=== PATIENT | female | born 1935 | race Hispanic/Latino ===

== ENCOUNTER → 2018-02-05 | Outpatient (CLI) | payer OTHER | END | disposition home or self-care (01) | LOC: RAH 07:43 | PROVIDERS: ATTEND Family Medicine | DX: K80.20 Calculus of gallbladder without cholecystitis without obstruction (principal); N28.1 Cyst of kidney, acquired | CPT/HCPCS: 76700 ==

== ENCOUNTER 2018-02-25 07:10 | Day surgery (SDC) | payer OTHER ==
[2018-02-23 08:27] VITALS: BP 177/92
[2018-02-23 08:35] LABS: BASOPHILS % (AUTO) 0.4 % (0.0-5.0); EOSINOPHILS % (AUTO) 1.6 % (0.0-8.0); HEMATOCRIT 34.7 % (36-48); LYMPHOCYTES % (AUTO) 32.6 % (21.0-51.0); MEAN CORPUSCULAR HEMOGLOBIN 32.8 pg (27.0-33.0); MEAN CORPUSCULAR VOLUME 96.6 fL (79-99); MONOCYTES % (AUTO) 5.6 % (3.0-13.0); NEUTROPHILS % (AUTO) 59.8 % (40.0-77.0); NUCLEATED RED BLOOD CELLS 0.1 % (0.0-0.19); PLATELET COUNT (AUTO) 230 K/uL (130-400); RED BLOOD CELL COUNT(AUTO) 3.59 MIL/uL (4.00-5.50); RED CELL DISTRIBUTION WIDTH 13.6 % (11.0-15.5); WHITE BLOOD COUNT (AUTO) 6.2 K/uL (4.8-10.8)
[2018-02-23 08:39] LABS: APPEARANCE,URINE CLEAR (CLEAR); BILIRUBIN,URINE NEGATIVE (NEGATIVE); COLOR,URINE YELLOW (YELLOW); GLUCOSE, URINE (UA) NEGATIVE (NEGATIVE); KETONES,URINE NEGATIVE (NEGATIVE); LEUKOCYTE ESTERASE ,URINE SMALL (NEGATIVE); NITRATE,URINE NEGATIVE (NEGATIVE); OCCULT BLOOD,URINE NEGATIVE (NEGATIVE); PH,URINE 7.5 (5.0-8.0); PROTEIN,URINE NEGATIVE (NEGATIVE); UROBILINOGEN,URINE 0.2 mg/dL (0.2-1.0)
[2018-02-23 08:41] LABS: BACTERIA,URINE Rare /HPF (None Seen); RBC,URINE 0-1 /HPF (0-1); SQUAMOUS EPITHELIAL CELL,UR Rare /HPF (0-2); WBC,URINE 0-1 /HPF (0-1)
[2018-02-23 08:51] LABS: ALBUMIN 3.9 g/dL (3.5-5.0); BILIRUBIN,DIRECT 0.1 mg/dL (0.0-0.3); BILIRUBIN,TOTAL 0.5 mg/dL (0.2-1.0); CREATININE 0.8 mg/dL (0.5-1.5); POTASSIUM 4.3 mmol/L (3.5-5.1); TOTAL PROTEIN, SERUM 7.4 g/dL (6.0-8.3)
[~2018-02-25] VITALS: Ht 149.9 cm; Wt 60.7 kg
[2018-02-25] VITALS (14 sets, daily range): BP systolic 124–160; BP diastolic 55–79
[~2018-02-25 07:10] MED LIST: ALEN70TA47 PO; ASPI-1181 PO; CHOL400C9 PO; LOSA25TA16 PO; METF-444 PO; PANT40TA25 PO; PRAV20TA4 PO
[2018-02-25] MEDS ORDERED: PROPOFOL 10 MG/ML 20ML VIAL IV ONE (07:46)
[2018-02-25] MEDS ORDERED: SUCCINYLCHOLINE 200MG/10ML SYR ONE (07:46)
[2018-02-25] MEDS ORDERED: ROCURONIUM 10MG/1ML SYR 10 MG/ML ML ONE (07:46)
[2018-02-25] MEDS ORDERED: LIDOCAINE PF 2% 5ML ABBOJECT ONE (07:46)
[2018-02-25] MEDS ORDERED: FENTANYL CITRATE PF 50 MCG/1 ML 2ML VIAL ONE (07:47)
[2018-02-25] MEDS ORDERED: SODIUM CHLORIDE 0.9% 1000ML 1,000 ML IV ONE (07:59)
[2018-02-25] MEDS ORDERED: HEPARIN SODIUM 1000UNIT/ML 10ML VIAL ONE (08:01)
[2018-02-25] MEDS ORDERED: ONDANSETRON HCL 4 MG/2 ML VIAL ONE ×2 (09:43→10:48)
[2018-02-25] MEDS ORDERED: NEOSTIGMINE 5MG/5ML SYR IV ONE (09:45)
[2018-02-25] MEDS ORDERED: GLYCOPYRROLATE 1 MG/5 ML SYRINGE ONE (09:45)
[2018-02-25] MEDS ORDERED: MEPERIDINE-PF 25 MG/ML SYG ONE ×2 (10:08→10:16)
[2018-02-25] MEDS ORDERED: METOCLOPRAMIDE 10 MG/2 ML VIAL ONE (10:52)
== END 2018-02-25 11:43 | disposition home or self-care (01) ==
LOC: DAH 07:10
PROVIDERS: ATTEND Surgery
DX: K80.10 Calculus of gallbladder with chronic cholecystitis without obstruction (principal); D64.9 Anemia, unspecified; E11.51 Type 2 diabetes mellitus with diabetic peripheral angiopathy without gangrene; E11.36 Type 2 diabetes mellitus with diabetic cataract; E11.39 Type 2 diabetes mellitus with other diabetic ophthalmic complication; E78.5 Hyperlipidemia, unspecified; I10 Essential (primary) hypertension; M81.0 Age-related osteoporosis without current pathological fracture; E66.3 Overweight; E11.42 Type 2 diabetes mellitus with diabetic polyneuropathy; E55.9 Vitamin D deficiency, unspecified; Z82.49 Family history of ischemic heart disease and other diseases of the circulatory system; Z83.3 Family history of diabetes mellitus; Z79.899 Other long term (current) drug therapy; Z79.84 Long term (current) use of oral hypoglycemic drugs; Z90.710 Acquired absence of both cervix and uterus; Z98.890 Other specified postprocedural states; K21.9 Gastro-esophageal reflux disease without esophagitis
CPT/HCPCS: 36415; 47562; 80048; 80076; 81001; 82948 ×2; 85025; 88304; 93005; A4450; A4600; C1769 ×4; J0330; J1644; J2001; J2175 ×2; J2405 ×2; J2704; J2710; J2765; J3010; J3490; J7030 ×2

== ENCOUNTER 2019-08-22 11:41 | Observation (INO) | payer OTHER ==
[~2019-08-22] VITALS: Ht 149.9 cm; Wt 60.1 kg
[~2019-08-22 11:41] MED LIST changes: +ALEN70TA10 PO; -ALEN70TA47 PO; -LOSA25TA16 PO; +LOSA25TA41 PO
[2019-08-22] MEDS ORDERED: METOPROLOL TARTRATE 1 MG/ML 5ML VIAL IV ONE (11:59)
[2019-08-22] MEDS ORDERED: ASPIRIN 325 MG TABLET ONE (11:59)
[2019-08-22] MEDS ORDERED: DILTIAZEM HCL 125 MG/25 ML VIAL IV ONE (12:00)
[2019-08-22 12:14] LABS: INR 0.96 (0.85-1.15); PARTIAL THROMBOPLASTIN TIME 25.9 SEC (26.3-35.5); PROTHROMBIN TIME 10.4 SEC (9.6-11.6)
[2019-08-22 12:27] LABS: ALBUMIN 4.4 g/dL (3.5-5.0); BILIRUBIN,TOTAL 0.5 mg/dL (0.2-1.0); CREATININE 1.2 mg/dL (0.5-1.5); POTASSIUM 4.3 mmol/L (3.5-5.1); TOTAL PROTEIN, SERUM 8.1 g/dL (6.0-8.3)
[2019-08-22 12:39] LABS: BASOPHILS % (AUTO) 0.3 % (0.0-5.0); EOSINOPHILS % (AUTO) 1.7 % (0.0-8.0); HEMATOCRIT 35.7 % (36-48); MEAN CORPUSCULAR HEMOGLOBIN 31.8 pg (27.0-33.0); MEAN CORPUSCULAR HGB CONC 32.2 g/dL (32.0-36.0); MEAN CORPUSCULAR VOLUME 98.6 fL (79-99); NEUTROPHILS % (AUTO) 53.7 % (40.0-77.0); PLATELET COUNT (AUTO) 257 K/uL (130-400); RED BLOOD CELL COUNT(AUTO) 3.62 MIL/uL (4.00-5.50); WHITE BLOOD COUNT (AUTO) 10.1 K/uL (4.8-10.8)
[2019-08-22 12:40] LABS: B-TYPE NATRIURETIC PEPTIDE 336 pg/mL (0-100)
[2019-08-22 14:45] VITALS: BP 144/69
[2019-08-22] MEDS ORDERED: HYDRALAZINE HCL 20 MG/ML VIAL IV PRN (16:45)
[2019-08-22] MEDS ORDERED: ONDANSETRON HCL 4 MG/2 ML VIAL IVP PRN (16:45)
[2019-08-22] MEDS ORDERED: ACETAMINOPHEN 325 MG TAB PO PRN (16:45)
[2019-08-22] MEDS ORDERED: GLUCAGON 1MG KIT 1 MG ML IM PRN (16:45)
[2019-08-22] MEDS ORDERED: DEXTROSE 50%-WATER 50 ML DISP.SYRIN IV PRN (16:45)
[2019-08-22] MEDS ORDERED: MAGNESIUM 2GM PREMIX 50ML 50 ML IV PRN (16:45)
[2019-08-22 19:16] LABS: CREATINE KINASE, TOTAL 49 U/L (21-232); MYOGLOBIN 52 ng/mL (10-92); TROPONIN I < 0.04 ng/mL (0.00-0.06)
[2019-08-22 19:40] VITALS: BP 123/59
[2019-08-22] MEDS ORDERED: DILTIAZEM HCL 125 MG/25 ML 125 MG in SODIUM CHLORIDE 0.9% 100 ML IV PRN (20:15)
[2019-08-22] MEDS: APIXABAN 5 MG TABLET PO SCH (20:37)
[2019-08-22] MEDS: ATORVASTATIN CALCIUM 10 MG TABLET PO SCH (20:37)
[2019-08-22] MEDS: INSULIN LISPRO 100 UNIT/ML 3ML SQ SCH (20:39)
[2019-08-23] VITALS (7 sets, daily range): BP systolic 116–146; BP diastolic 64–75
[2019-08-23 01:03] LABS: CREATINE KINASE, TOTAL 51 U/L (21-232); MYOGLOBIN 46 ng/mL (10-92); TROPONIN I < 0.04 ng/mL (0.00-0.06)
[2019-08-23 06:10] LABS: HEMATOCRIT 31.2 % (36-48); MEAN CORPUSCULAR HEMOGLOBIN 32.1 pg (27.0-33.0); MEAN CORPUSCULAR HGB CONC 32.7 g/dL (32.0-36.0); MEAN CORPUSCULAR VOLUME 98.1 fL (79-99); RED BLOOD CELL COUNT(AUTO) 3.18 MIL/uL (4.00-5.50)
[2019-08-23 06:20] LABS: CREATININE 0.9 mg/dL (0.5-1.5); MAGNESIUM 1.7 mg/dL (1.80-2.40); POTASSIUM 4.1 mmol/L (3.5-5.1)
[2019-08-23] MEDS: INSULIN LISPRO 100 UNIT/ML 3ML SQ SCH ×5 (06:35→21:07)
[2019-08-23] MEDS: APIXABAN 5 MG TABLET PO SCH ×2 (08:16→21:08)
[2019-08-23] MEDS: PANTOPRAZOLE SODIUM 40 MG TABLET.DR PO SCH (08:16)
[2019-08-23] MEDS: CHOLECALCIFEROL 400 UNIT PO SCH (08:19)
[2019-08-23] MEDS ORDERED: ASPIRIN 81 MG EC TAB PO SCH (09:00)
[2019-08-23] MEDS ORDERED: PANTOPRAZOLE 40 MG/VIAL IVP SCH (09:00)
[2019-08-23] MEDS: METOPROLOL TARTRATE 25 MG TAB PO SCH ×2 (12:20→21:08)
--- NOTE | 2019-08-23 16:46 | NUR ---
CM NOTE/IA MEET WITH PATIENT IN ROOM. PER PATIENT, LIVES ALONE, IS INDEPENDENT WITH ADLS, DRIVES TO APPOINTMENTS, NO DME IN USE, NO COMMUNITY RESOURCES IN USE AND FEELS SAFE TO RETURN HOME ONCE DISCHARGED FROM HOSPITAL. PER PATIENT, INTERESTED IN PROVIDER SERVICES IF QUALIFIES. DEPARTMENT OF AGING AND DISABILITY YAMILETH BACA, EMAILED PATIENT INFORMATION FOR POSSIBLE SERVICES. PATIENT GIVEN [employer] CARD TO CALL AFTER DISCHARGE FROM HOSPITAL, PATIENT VERBALIZED UNDERSTANDING. DCP TO HOME POSSIBLY TOMORROW IF STABLE. Addendum: 08/23/19 at 1649 by MARY ELLEN WILLARD RN CM Amended: Links added.
[2019-08-23] MEDS ORDERED: METOPROLOL TARTRATE 25 MG TAB PO SCH (21:00)
[2019-08-23] MEDS: ATORVASTATIN CALCIUM 10 MG TABLET PO SCH (21:08)
--- NOTE | 2019-08-23 21:26 | NUR ---
REFUSED INSULIN PT REFUSED TO TAKE INSULIN. STATES SHE DOES NOT TAKE INSULIN AT HOME AND DOES NOT WANT TO TAKE IT HERE. PROVIDED TEACHING ON MEDICATION, PT CONTINUES TO REFUSE MED.
[2019-08-24 03:43] VITALS: BP 123/67
[2019-08-24 03:57] LABS: MAGNESIUM 2.1 mg/dL (1.80-2.40); THYROID STIMULATING HORMONE 0.52 uIU/mL (0.36-3.74)
[2019-08-24] MEDS: INSULIN LISPRO 100 UNIT/ML 3ML SQ SCH (06:47)
[2019-08-24 07:53] VITALS: BP 132/55
[2019-08-24] MEDS: CHOLECALCIFEROL 400 UNIT PO SCH (09:00)
[2019-08-24] MEDS ORDERED: LISINOPRIL 5 MG TABLET PO SCH (09:00)
--- NOTE | 2019-08-24 09:15 | NUR ---
AM ASSESSMENT PT SITTING IN CHAIR, WATCHING TV. A/O X 3. NO SOB. NO DISTRESS NOTED. DENIES CHEST PAIN OR DISCOMFORT. DENIES PALPITATIONS. TELE: SR. DENIES N/V AND/OR DIARRHEA. UP AD GINI. INSTRUCTED TO CALL FOR ASSISTANCE. CALL [facility] W/IN REACH.
[2019-08-24] MEDS: METOPROLOL TARTRATE 25 MG TAB PO SCH (09:18)
[2019-08-24] MEDS: APIXABAN 5 MG TABLET PO SCH (09:19)
[2019-08-24] MEDS: PANTOPRAZOLE SODIUM 40 MG TABLET.DR PO SCH (09:19)
[2019-08-24] MEDS ORDERED: METO25 PO (10:52)
[2019-08-24] MEDS ORDERED: LISI-617 PO (10:52)
[2019-08-24] MEDS ORDERED: ATOR10 PO (10:52)
[2019-08-24] MEDS ORDERED: APIX5TAB PO (10:52)
--- NOTE | 2019-08-24 11:15 | NUR ---
DISCHARGE VERBAL & WRITTEN DISCHARGE INSTRUCTIONS REVIEWED & GIVEN TO PT IN [place]. QUESTIONS ENCOURAGED & CLARIFIED. PROPER CARE & MGT OF ATRIAL FIBRILLATION REVIEWED. NEW PRESCRIBED MEDICATIONS REVIEWED. PT INFORMED PRESCRIPTION TRANSMITTED TO [facility]. DISCONTINUED HOME MEDICATIONS REVIEWED. TELE MIGUEL REMOVED EARLIER. IV DC'D. PT TO GATHER PERSONAL BELONGINGS. PT'S DAUGHTER TO CLINICAL LABORATORY DIRECTOR PT FROM HOSPITAL.
--- NOTE | 2019-08-24 11:50 | NUR ---
DISCHARGE PT'S DAUGHTER HERE TO TAKE PT HOME. PT TAKEN RO PRIVATE VEHICLE VIA WC BY Mark MEAD PCP. NO DISTRESS NOTED.
== END 2019-08-24 11:50 | disposition home or self-care (01) ==
LOC: EDH 11:41 → EDHIP 14:06 → 4DH 14:39
PROVIDERS: ADMIT Internal Medicine Critical Care Medicine; ATTEND Internal Medicine Critical Care Medicine
DX: I48.91 Unspecified atrial fibrillation (principal); I12.9 Hypertensive chronic kidney disease with stage 1 through stage 4 chronic kidney disease, or unspecified chronic kidney disease; E11.22 Type 2 diabetes mellitus with diabetic chronic kidney disease; N18.3 Chronic kidney disease, stage 3 (moderate); R42 Dizziness and giddiness; E78.00 Pure hypercholesterolemia, unspecified; Z87.891 Personal history of nicotine dependence; Z90.710 Acquired absence of both cervix and uterus; Z90.49 Acquired absence of other specified parts of digestive tract; Z79.01 Long term (current) use of anticoagulants
CPT/HCPCS: 36415 ×3; 71045 ×2; 80048; 80053; 82550 ×3; 82948 ×8; 83735 ×2; 83874 ×2; 83880; 84100; 84443; 84484 ×3; 85025; 85027; 85610; 85730; 93005 ×3; 93306; 93356; 96365; 96366; 96375; 99291; G0378 ×11; J3475; J3490 ×2

== ENCOUNTER → 2019-11-22 | Outpatient (CLI) | payer OTHER ==
[~2019-11-22] MED LIST changes: +APIX5TAB PO; -ASPI-1181 PO; +ATOR10 PO; +LISI-617 PO; -LOSA25TA41 PO; +METO25 PO; -PRAV20TA4 PO
== END | disposition home or self-care (01) ==
LOC: OIH 10:04
PROVIDERS: ATTEND Internal Medicine Cardiovascular Disease
DX: Z13.6 Encounter for screening for cardiovascular disorders (principal)
CPT/HCPCS: 75571

== ENCOUNTER → 2019-11-22 | Outpatient (CLI) | payer OTHER | END | disposition home or self-care (01) | LOC: SHCH 10:07 | PROVIDERS: ATTEND Internal Medicine Cardiovascular Disease | DX: I42.0 Dilated cardiomyopathy (principal); R55 Syncope and collapse; I51.7 Cardiomegaly | CPT/HCPCS: 93306 ==

== ENCOUNTER → 2020-07-02 | Outpatient (CLI) | payer OTHER ==
[~2020-07-02] MED LIST changes: -ALEN70TA10 PO; +ALEN70TA80 PO; -LISI-617 PO; +LISI-809 PO; -PANT40TA25 PO; +PANT40TA54 PO
== END | disposition home or self-care (01) ==
LOC: SHCH 10:23
PROVIDERS: ATTEND Internal Medicine Cardiovascular Disease
DX: I73.9 Peripheral vascular disease, unspecified (principal)
CPT/HCPCS: 93925

== ENCOUNTER 2021-01-31 02:50 | Observation (INO) | payer OTHER ==
[~2021-01-31] VITALS: Ht 152.4 cm; Wt 62.1 kg
[~2021-01-31 02:50] MED LIST changes: -ATOR10 PO; +ATOR10TA69 PO; -CHOL400C9 PO; +FERR-82 PO; +FURO40TA7 PO; -LISI-809 PO; +LISI10TA24 PO; -METO25 PO; +METO50TA9 PO; -PANT40TA54 PO; +SPIR25TA6 PO
[2021-01-31] MEDS ORDERED: LIDOCAINE HCL 2% VISCOUS 15 ML UDCUP PO ONE (03:30)
[2021-01-31] MEDS ORDERED: DICYCLOMINE HCL 10 MG/5 ML ML PO ONE (03:30)
[2021-01-31] MEDS ORDERED: ONDANSETRON 4MG INJ IVP ONE (03:30)
[2021-01-31] MEDS ORDERED: MAG/ALUM/SIMETH 30 ML UDCUP PO ONE (03:30)
[2021-01-31] MEDS ORDERED: METO-409 PO (03:37)
[2021-01-31] MEDS ORDERED: AMIO200T6 PO (03:37)
[2021-01-31] MEDS ORDERED: LISI-809 PO (03:37)
[2021-01-31 03:42] LABS: BASOPHILS % (AUTO) 0.1 % (0.0-5.0); EOSINOPHILS % (AUTO) 1.9 % (0.0-8.0); HEMATOCRIT 31.2 % (36-48); LYMPHOCYTES % (AUTO) 29.2 % (21.0-51.0); MEAN CORPUSCULAR HEMOGLOBIN 32.4 pg (27.0-33.0); MEAN CORPUSCULAR HGB CONC 32.1 g/dL (32.0-36.0); MONOCYTES % (AUTO) 5.9 % (3.0-13.0); NEUTROPHILS % (AUTO) 62.6 % (40.0-77.0); PLATELET COUNT (AUTO) 172 K/uL (130-400); RED BLOOD CELL COUNT(AUTO) 3.09 MIL/uL (4.00-5.50); RED CELL DISTRIBUTION WIDTH 14.6 % (11.0-15.5); WHITE BLOOD COUNT (AUTO) 8.6 K/uL (4.8-10.8)
[2021-01-31 03:47] LABS: CREATININE 2.3 mg/dL (0.5-1.5)
[2021-01-31 03:52] LABS: ALBUMIN 3.7 g/dL (3.5-5.0); BILIRUBIN,TOTAL 0.7 mg/dL (0.2-1.0); TOTAL PROTEIN, SERUM 6.6 g/dL (6.0-8.3)
[2021-01-31] MEDS ORDERED: 0.9%NACL 1000ML 1,000 ML IV ONE ×2 (04:25→04:30)
[2021-01-31] MEDS ORDERED: MAGNESIUM 2GM PREMIX 50ML 50 ML IV PRN (06:00)
[2021-01-31] MEDS ORDERED: POTASSIUM CHLORIDE 10MEQ/100ML 100 ML IV PRN ×2 (06:00)
[2021-01-31] MEDS ORDERED: DEXTROSE 50%-WATER 50 ML DISP.SYRIN IV PRN (06:00)
[2021-01-31] MEDS ORDERED: POTASSIUM CHLORIDE 10% ELIXIR 20 MEQ/15 ML UDCUP PO PRN (06:00)
[2021-01-31] MEDS ORDERED: GLUCAGON 1MG KIT 1 MG ML IM PRN (06:00)
[2021-01-31] MEDS ORDERED: KCL 20 MEQ ERTAB PO PRN (06:00)
[2021-01-31] MEDS ORDERED: LIDOCAINE HCL-MPF 1% 2ML VIAL IV PRN ×2 (06:00)
[2021-01-31] MEDS ORDERED: HEPARIN 5,000 UNIT VIAL SQ SCH ×2 (06:30→21:00)
[2021-01-31] MEDS: INSULIN HUMULIN R 100 UNIT/ML 3ML SQ SCH ×4 (07:30→21:00)
[2021-01-31 07:56] LABS: HEMOGLOBIN A1C 7.5 % (4.0-6.0)
[2021-01-31] MEDS ORDERED: AMIODARONE 200 MG TABLET PO SCH (09:00)
[2021-01-31] MEDS ORDERED: FAMOTIDINE 20MG VIAL IV SCH (09:00)
[2021-01-31] MEDS: ATORVASTATIN 10 MG TABLET PO SCH (09:33)
[2021-01-31] MEDS: METFORMIN HCL 500 MG TABLET PO SCH (09:33)
[2021-01-31] MEDS: FERROUS SULFATE 325 MG TABLET.DR PO SCH (09:33)
[2021-01-31] MEDS: METOPROLOL SUCCINATE 50 MG TAB.SR.24H PO SCH ×2 (09:34→20:18)
[2021-01-31] MEDS: LISINOPRIL 5 MG TABLET PO SCH (09:34)
[2021-01-31] MEDS: APIXABAN 5 MG TABLET PO SCH ×2 (09:34→20:15)
[2021-01-31 16:10] VITALS: BP 125/46
[2021-01-31 20:00] VITALS: BP 136/56
[2021-01-31] MEDS: METRONIDAZOLE 500 MG TABLET PO SCH (20:15)
[2021-01-31] MEDS: AMOX/CLAV 875/125MG TAB PO SCH (20:15)
[2021-01-31] MEDS: PANTOPRAZOLE 40 MG TAB DR PO SCH (20:15)
[2021-02-01 00:32] VITALS: BP 93/59
[2021-02-01 03:47] VITALS: BP 104/52
[2021-02-01 04:27] LABS: HEMATOCRIT 28.3 % (36-48); MEAN CORPUSCULAR HEMOGLOBIN 32.3 pg (27.0-33.0); MEAN CORPUSCULAR HGB CONC 32.5 g/dL (32.0-36.0); MEAN CORPUSCULAR VOLUME 99.3 fL (79-99); RED BLOOD CELL COUNT(AUTO) 2.85 MIL/uL (4.00-5.50); RED CELL DISTRIBUTION WIDTH 14.4 % (11.0-15.5); WHITE BLOOD COUNT (AUTO) 6.2 K/uL (4.8-10.8)
[2021-02-01 04:46] LABS: CREATININE 1.7 mg/dL (0.5-1.5); MAGNESIUM 1.9 mg/dL (1.80-2.40); POTASSIUM 5.1 mmol/L (3.5-5.1)
[2021-02-01] MEDS: AMOX/CLAV 875/125MG TAB PO SCH (05:23)
[2021-02-01] MEDS: METRONIDAZOLE 500 MG TABLET PO SCH ×2 (05:23→11:34)
[2021-02-01] MEDS: INSULIN HUMULIN R 100 UNIT/ML 3ML SQ SCH ×2 (05:54→11:30)
[2021-02-01 07:10] VITALS: BP 113/53
[2021-02-01] MEDS: APIXABAN 5 MG TABLET PO SCH (08:57)
[2021-02-01] MEDS: ATORVASTATIN 10 MG TABLET PO SCH (08:57)
[2021-02-01] MEDS: METFORMIN HCL 500 MG TABLET PO SCH (08:57)
[2021-02-01] MEDS: LISINOPRIL 5 MG TABLET PO SCH (08:57)
[2021-02-01] MEDS: FERROUS SULFATE 325 MG TABLET.DR PO SCH (08:57)
[2021-02-01] MEDS: PANTOPRAZOLE 40 MG TAB DR PO SCH (08:57)
[2021-02-01 11:15] VITALS: BP 117/30
== END 2021-02-01 14:20 | disposition home or self-care (01) ==
LOC: EDH 02:50 → EDHIP 04:45 → 3AH 16:06
PROVIDERS: ADMIT Internal Medicine Pulmonary Disease; ATTEND Internal Medicine Pulmonary Disease
DX: K52.9 Noninfective gastroenteritis and colitis, unspecified (principal); R07.89 Other chest pain; I48.91 Unspecified atrial fibrillation; J44.9 Chronic obstructive pulmonary disease, unspecified; N17.9 Acute kidney failure, unspecified; I13.0 Hypertensive heart and chronic kidney disease with heart failure and stage 1 through stage 4 chronic kidney disease, or unspecified chronic kidney disease; I50.9 Heart failure, unspecified; N18.9 Chronic kidney disease, unspecified; E11.22 Type 2 diabetes mellitus with diabetic chronic kidney disease; D63.1 Anemia in chronic kidney disease; I25.10 Atherosclerotic heart disease of native coronary artery without angina pectoris; M19.90 Unspecified osteoarthritis, unspecified site; E78.00 Pure hypercholesterolemia, unspecified; Z79.01 Long term (current) use of anticoagulants; Z79.899 Other long term (current) drug therapy; Z87.891 Personal history of nicotine dependence; Z79.84 Long term (current) use of oral hypoglycemic drugs
CPT/HCPCS: 36415 ×2; 71045; 78582; 80048; 80053; 80061; 82948 ×6; 83036; 83690; 83735; 84145; 84443; 84484 ×3; 85025; 85027; 85378; 86677; 93005; 93970; 96361; 96372; 96374; 96375; 97039; 97116; 97161; 99285; A9540; A9558; G0378 ×31; J1644; J2405; J3490; J7030

== ENCOUNTER → 2022-11-07 | Outpatient (CLI) | payer OTHER ==
[~2022-11-07] MED LIST changes: -ALEN70TA80 PO; +AMIO200T68 PO; +APIX2.5T PO; -APIX5TAB PO; -ATOR10TA69 PO; +CEPH500B PO; +CHOL2000 PO; +ESOM40VI2 IV; -FERR-82 PO; +FURO40TA5 PO; -FURO40TA7 PO; -LISI10TA24 PO; +METO-409 PO; -METO50TA9 PO; +SERT-439 PO; -SPIR25TA6 PO
[2022-11-07 15:33] LABS: ALBUMIN 3.8 g/dL (3.5-5.0); MAGNESIUM 2.3 mg/dL (1.80-2.40); POTASSIUM 4.2 mmol/L (3.5-5.1); TOTAL PROTEIN, SERUM 7.7 g/dL (6.0-8.3)
== END | disposition home or self-care (01) ==
LOC: LAB 14:17
PROVIDERS: ATTEND Physician Assistant
DX: I10 Essential (primary) hypertension (principal); E78.5 Hyperlipidemia, unspecified
CPT/HCPCS: 36415; 80053; 83735; 83880

== ENCOUNTER → 2023-03-03 | Outpatient (CLI) | payer OTHER ==
[2023-03-03 13:04] LABS: ALBUMIN 4.1 g/dL (3.5-5.0); BILIRUBIN,TOTAL 0.4 mg/dL (0.2-1.0); CREATININE 1.8 mg/dL (0.5-1.5); MAGNESIUM 2.2 mg/dL (1.80-2.40); POTASSIUM 4.3 mmol/L (3.5-5.1); TOTAL PROTEIN, SERUM 8.1 g/dL (6.0-8.3)
== END | disposition home or self-care (01) ==
LOC: LAB 08:35
PROVIDERS: ATTEND Internal Medicine Cardiovascular Disease
DX: I10 Essential (primary) hypertension (principal); E78.5 Hyperlipidemia, unspecified
CPT/HCPCS: 36415; 80053; 83735; 83880

== ENCOUNTER → 2023-07-22 | Outpatient (CLI) | payer OTHER ==
[2023-07-22 16:22] LABS: BASOPHILS # (AUTO) 0.01 K/uL (0.00-0.20); BASOPHILS % (AUTO) 0.2 % (0.0-5.0); EOSINOPHILS # (AUTO) 0.11 K/uL (0.00-0.70); EOSINOPHILS % (AUTO) 2.1 % (0.0-8.0); HEMATOCRIT 32.6 % (36-48); IMMATURE GRANULOCYTE ABSOLUTE 0.02 K/uL (0-1); LYMPHOCYTES # (AUTO) 1.2 K/uL (1.0-4.8); LYMPHOCYTES % (AUTO) 23.3 % (21.0-51.0); MEAN CORPUSCULAR HEMOGLOBIN 32.5 pg (27.0-33.0); MEAN CORPUSCULAR HGB CONC 31.3 g/dL (32.0-36.0); MEAN CORPUSCULAR VOLUME 103.8 fL (79-99); MONOCYTES # (AUTO) 0.4 K/uL (0.1-1.0); MONOCYTES % (AUTO) 6.7 % (3.0-13.0); NEUTROPHILS # (AUTO) 3.5 K/uL (1.8-7.7); NEUTROPHILS % (AUTO) 67.3 % (40.0-77.0); PLATELET COUNT (AUTO) 130 K/uL (130-400); RED BLOOD CELL COUNT(AUTO) 3.14 MIL/uL (4.00-5.50); WHITE BLOOD COUNT (AUTO) 5.2 K/uL (4.8-10.8)
[2023-07-22 16:45] LABS: BILIRUBIN,TOTAL 0.5 mg/dL (0.2-1.0); CREATININE 2.1 mg/dL (0.5-1.0); MAGNESIUM 2.4 mg/dL (1.80-2.40); POTASSIUM 5.2 mmol/L (3.5-5.1); TOTAL PROTEIN, SERUM 7.7 g/dL (6.0-8.3)
== END | disposition home or self-care (01) ==
LOC: LAB 13:14
PROVIDERS: ATTEND Internal Medicine Cardiovascular Disease
DX: I10 Essential (primary) hypertension (principal)
CPT/HCPCS: 36415; 80053; 83735; 83880; 85025